=== PATIENT | female | born 1990 | race Caucasian/White ===

== ENCOUNTER → 2017-10-04 09:45 | Outpatient (CLI) | payer OTHER, SELFPAY ==
[2017-10-06 15:32] LABS: HPV Reflexed? NOT INDICATED
== END ==
PROVIDERS: Family Provider Family Medicine; PCP Family Medicine; Visit Provider Obstetrics & Gynecology
DX: Z12.4 Encounter for screening for malignant neoplasm of cervix (principal)
CPT/HCPCS: 88175; G0145

== ENCOUNTER → 2017-10-04 16:10 | Outpatient (CLI) | payer OTHER, SELFPAY | PROVIDERS: Family Provider Family Medicine; PCP Family Medicine; Visit Provider Obstetrics & Gynecology | DX: Z12.4 Encounter for screening for malignant neoplasm of cervix (principal) ==

== ENCOUNTER → 2018-07-22 14:47 | Outpatient (CLI) | payer OTHER, SELFPAY ==
[2016-08-30 05:10] VITALS: BMI 29.5
[2018-07-22 18:07] LABS: Chlamydia Trachomatis by PCR Negative (Negative); Neisserai gonorrhoeae by PCR Negative (Negative); Probe Check PASS; Sample Adequacy Control PASS; Specimen Processing Control PASS
--- OUTSIDE RECORDS SUMMARY | 2018-09-26 05:06 | XMS RPT_ITS ---
:1990 Author Organization OHIP Care Team Providers Name Role Phone Renetta Shannon Attending Unavailable Renetta Shannon Attending Unavailable Renetta Shannon Referring Unavailable Leighton Webb Primary Care Unavailable Renetta Shannon Attending Unavailable Renetta Shannon Referring Unavailable Leighton Webb Primary Care Unavailable PROBLEMS PROBLEMS DATE TYPE CONDITION / CODE ATTENDING STATUS SOURCE 07/25/2018 Unknown Z11.3 - Encounter Renetta Shannon Active [place] for screening for Community infections with a [facility] Repository sexual mode of transmission / Z11.3(ICD-10) 10/05/2017 Unknown Z12.4 - Encounter Renetta Shannon for screening for Community malignant neoplasm [facility] / Repository Z12.4(ICD-10) PROCEDURES PROCEDURES No Procedure Records FoundRESULTS RESULTS CT/NG [facility] BY PCR Collected: 07/22/2018 Status: F Source: [place] 9:45 AM [facility] REPOSITORY TYPE CODE TESTS RESULT OUT OF RANGE REFERENCE UNITS LAB L8200.2100 Negative Normal Chlam Negative Trac PCR LAB L8200.2200 Negative Normal NG by Negative PCR Performed By: #### L8200.1999 #### [facility] [address] [place], [address] PROGRESS Observed: 03/22/2018 Status: COMPLETED Source: [place] 2:51 PM [facility] REPOSITORY HNO ID: [id number] Author: Nazanin Hayden MA Service: (none) Author Type: (none) Type: Progress Notes Filed: 03/22/2018 3:12 PM Note Text: 27 year old female here for INACTIVATED INFLUENZA VACCINE. 2437-8973 Season Patient is identified by name and date of : Yes [] CONTRAINDICATIONS color enhanced section Age less than 6 months? No Allergy to eggs, chicken, chicken feathers, or chicken dander? No Allergy to thimerosal (a preservative) or formaldehyde, gelatin? No History of severe reaction to any vaccine component or a previous dose of influenza vaccination? No History of Guillain-[place] Syndrome within 6 weeks after a previous influenza vaccine? No Patient is not moderately or severely ill? No Current temperature greater or equal to 100.4F? No History of Bone Marrow Transplant prior 6 months or solid organ transplant in the past 3 months ? No History of fainting after a prior injection or medical procedure? No- ? If patient has fainted in the past, the CDC recommends sitting or lying down for 15 minutes after the vaccination. [] VERIFICATION color enhanced section Was the answer Yes for any of the above contraindications? No contraindications present. Acceptable to proceed with vaccine. Patient/guardian agrees the above answers are true to the best of their knowledge? Yes Flu vaccine information sheet given? Yes See immunization activity in [facility] for details of immunizations adminstered today. Nazanin Hayden MA Patient age: [age] year old For The 5377-6924 Flu Season 6-35 months old: Fluzone 0.25 ml - IM (Preservative Free) 3 years of age: Fluzone 0.5 ml - IM (Preservative Free) 3 years and older: Fluzone 0.5 ml- IM-(with Preservatives) 65+ years old: 2-49 years old Fluzone High-Dose 0.5 ml - IM (Preservative Free) FLUMIST- intranasal REMEMBER: If patient is less than 9 years of age and this is the first vaccine of Influenza to be received in any flu season, they should receive a second dose in one months time. CNNURSE Observed: 03/22/2018 Status: COMPLETED Source: [place] 12:00 PM [facility] REPOSITORY Nurse Visit (PEDSWS) STEPHANIE SAHU ([id number]) 1990 F Date Time Provider Department 03/22/18 12:00 PM [facility] During your visit today, we recorded the following information about you: Nazanin Hayden MA 03/22/2018 3:12 PM Signed 27 year old female here for INACTIVATED INFLUENZA VACCINE. 1187-9688 Season Patient is identified by name and date of : Yes [] CONTRAINDICATIONS color enhanced section Age less than 6 months? No Allergy to eggs, chicken, chicken feathers, or chicken dander? No Allergy to thimerosal (a preservative) or formaldehyde, gelatin? No History of severe reaction to any vaccine component or a previous dose of influenza vaccination? No History of Guillain-[place] Syndrome within 6 weeks after a previous influenza vaccine? No Patient is not moderately or severely ill? No Current temperature greater or equal to 100.4F? No History of Bone Marrow Transplant prior 6 months or solid organ transplant in the past 3 months ? No History of fainting after a prior injection or medical procedure? No- ? If patient has fainted in the past, the CDC recommends sitting or lying down for 15 minutes after the vaccination. [] VERIFICATION color enhanced section Was the answer Yes for any of the above contraindications? No contraindications present. Acceptable to proceed with vaccine. Patient/guardian agrees the above answers are true to the best of their knowledge? Yes Flu vaccine information sheet given? Yes See immunization activity in [facility] for details of immunizations adminstered today. Nazanin Hayden MA Patient age: [age] year old For The 0555-1627 Flu Season 6-35 months old: Fluzone 0.25 ml - IM (Preservative Free) 3 years of age: Fluzone 0.5 ml - IM (Preservative Free) 3 years and older: Fluzone 0.5 ml- IM-(with Preservatives) 65+ years old: 2-49 years old Fluzone High-Dose 0.5 ml - IM (Preservative Free) FLUMIST- intranasal REMEMBER: If patient is less than 9 years of age and this is the first vaccine of Influenza to be received in any flu season, they should receive a second dose in one months time. Referring Provider: SELF [200] Allergies As of Date: 03/22/2018 (No Known Allergies) Date Reviewed: 09/02/2016 Reviewed by: Aleja (Rn) ONEIL Shetty - Fully Assessed Reason for Visit: Imm/Inj [58] Cmt: Flu Vaccine Primary Visit Diagnosis:Need for vaccination [Z23] Order(s):INFLUENZA VAC QUADRIVALENT PRSRV FREE AGE 3 YRS + IM [[id number]] Order #: [id number] Prescriptions as of 03/22/2018 Sig: SPRINTEC (28) ORAL Take by mouth. BENADRYL ORAL Take by mouth. SINGULAIR ORAL Take by mouth. NINA ORAL Take by mouth. XYZAL ORAL Take by mouth. RANITIDINE HCL ORAL Take by mouth. ALBUTEROL SULFATE ER 4 MG TAB* Take 4 mg by mouth every 12 h* NORGESTIMATE 0.25 MG-ETHINYL * Take 1 tablet by mouth once d* NORGESTIMATE 0.25 MG-ETHINYL * Take 1 tablet by mouth once d* Problem List As Of Date: 03/22/2018 (None) Encounter Status:Closed by NAZANIN HAYDEN MA on 03/22/18 PAP I-G W/RFX HRHPV Collected: 10/04/2017 Status: F Source: [place] 9:45 AM [facility] REPOSITORY Order Comment: CYTOLOGY INFORMATION: - CLINICAL INFORMATION: OCP - DATE LMP/MENOPAUSE: LMP 09/26 - COLLECTION VIAL: Thin Prep Vial - [employer] OPERATOR SOURCE: CERVICAL/ENDOCERVICAL - COLLECTION TECHNIQUE: BRUSH/SPATULA Specimen Comment: [id number] Specimen Comment: No. of containers..01 ThinPrep Vial TYPE CODE TESTS RESULT OUT OF RANGE REFERENCE UNITS LAB L7400.0800 . Normal DIAGN Comment Result Comment: NEGATIVE FOR INTRAEPITHELIAL LESION AND MALIGNANCY. LAB L7400.0900 . Normal ADEQ Comment Result Comment: Satisfactory for evaluation. Endocervical and/or squamous metaplastic cells (endocervical component) are present. LAB L7400.1400 . Normal PERFORM Comment Result Comment: Kira Edgar, It Service Manager (ASCP) LAB L7400.2575 . Normal TEST METHOD Comment Result Comment: This liquid based ThinPrep(R) pap test was screened with the use of an image guided system. LAB L7400.2600 . Normal . COMM LAB L7400.2700 . Normal PAPSMR Comment Result Comment: The Pap smear is a screening test designed to aid in the detection of premalignant and malignant conditions of the uterine cervix. It is not a diagnostic procedure and should not be used as the sole means of detecting cervical cancer. Both false-positive and false-negative reports do occur. LAB L7400.2800 . Normal HPV RFLX Comment Result Comment: The HPV DNA reflex criteria were not met with this specimen result therefore, no HPV testing was performed. Performed at: [address] [place] [id number] Field Crop Grower: Laquita Arroyo MD, Phone: [phone] Performed By: #### L7400.0350 #### [facility] (refer to report for specific site) refer to report for address and phone number ALLERGIES ALLERGIES DATE TYPE / CODE NAME / CODE REACTION SEVERITY SOURCE 08/30/2016 Drug No Known Unknown [facility] Allergy/416 Allergies/Y25769 Hospital 130950(SNOM 0388(RXNORM) Repository ED CT) Drug NO KNOWN [facility] Class/17693 ALLERGIES Main [place] 1003(SNOMED Repository CT) ENCOUNTERS ENCOUNTERS ADMIT/DISCHARGE ACCOUNT ADMITTING ENCOUNTER LOCATION SOURCE NUMBER CLASS 07/22/2018 [id number] [facility] ing:[facility]SPEC Repository 03/22/2018/03/23/20 [id number] [address]ulatory [address] Repository 03/08/[id number] [facility] Repository 10/04/2017 [id number] [facility] ing:[facility]SPEC Repository 10/04/2017 [id number] [facility] ing:[facility]SPEC Repository PAYERS PAYERS ENCOUNTER GUARANTOR PAYER SUBSCRIBER SOURCE 07/22/2018 STEPHANIE [id number] Primary MANUEL L [place] Insurance:AULTCAREPol MEENANDOB: [facility] Number: [id number] Hospital [address]Lzl: [phone] [id number] Repository [phone] () Date:[id number] [address] [place] [id number]: 07/22/2018 Secondary NOT GIVENUNK [place] Insurance:SELF PAY [facility] Number: Effective Repository Date:2018-07-22 10/04/2017 Stephanie [id number] Primary Manuel L [place] Insurance:AULTCAREPol MeenanDOB: [facility]: [id number] [address]Kvq: [id number] Repository Date:[id number] [address] ) [address] [place] [id number]: 10/04/2017 Secondary NOT GIVENUNK [place] Insurance:SELF PAY [facility] Number: Effective Repository Date:2017-10-04 10/04/2017 Stephanie [id number] Primary Manuel L [place] Insurance:AULTCAREPol MeenanDOB: [facility] Gwen joanaernesto Number: [id number] [facility] [address]Ugn: [id number] Repository Date:[id number] [address], [place] [address]JS: 10/04/2017 Secondary NOT GIVENUNK [place] Insurance:SELF PAY [facility] Number: Effective Repository Date:2017-10-04
== END ==
PROVIDERS: Visit Provider Obstetrics & Gynecology
DX: Z11.3 Encounter for screening for infections with a predominantly sexual mode of transmission (principal)
CPT/HCPCS: 87491; 87591

== ENCOUNTER → 2018-08-01 16:17 | Outpatient (CLI) | payer OTHER, SELFPAY ==
[2016-08-30 05:10] VITALS: BMI 29.5
[2018-08-01 17:35] LABS: Absolute Lymphocyte Count 2.64 X10^3/ul (0.83-4.51); Absolute Neutrophil Count 5.4 X10^3/uL (2.0-7.7); Basophil# 0.02 X10^3/uL; Basophil% 0.2 % (0-1); Eosinophil# 0.07 X10^3/uL; Eosinophils% 0.8 % (0-5); Hematocrit 38.6 % (37-47); Hemoglobin 12.9 g/dl (12.0-15.0); Lymphocyte # 2.64 X10^3/ul (4.0); Mean Corp Hgb Conc 33.4 g/gl (32-36); Mean Corpuscular Hgb 30.6 pg (27.0-32.0); Mean Corpuscular Volume 91.7 fL (81-99); Mean Platelet Vol. 10.2 fl (6.2-12.0); Monocyte# 0.71 X10^3/uL; Monocyte% 8.1 % (0-10); Neutrophil # 5.35 X10^3/uL (2.7-7.7); Neutrophil % 60.7 % (47-70); Platelet Count 261 K/mm3 (150-450); RBC Distribution Width CV 11.9 % (11.6-14.6); RBC Distribution Width SD 38.9 fl (35.1-43.9); Red Blood Count 4.21 M/mm3 (4.2-5.4); White Blood Count 8.8 K/mm3 (4.4-11.0)
[2018-08-01 17:50] LABS: Thyroid Stim Hormone (TSH) 0.89 uIU/mL (0.358-3.74)
[2018-08-01 18:04] LABS: POSITIVE COUNT NO; POSITIVE DIFFERENTIAL NO; POSITIVE MORPHOLOGY NO
[2018-08-01 18:32] LABS: Color, Urine Yellow (Yellow); Glucose, Dipstick Normal (Normal); HIV - WCH Non-Reactive (Nonreactive); Ketone-Dipstick Negative (Negative); Leukocyte Esterase-Dipstick Negative /ul (Negative); Nitrite-Dipstick Negative (Negative); Occult Blood-Urine Negative /ul (Negative); Protein-Dipstick Negative (Negative); Rubella IgG 102.7 IU/mL; Urine Bilirubin Dipstick Negative (Negative); Urine Clarity Clear (Clear); Urine Urobilinogen Normal (Normal)
[2018-08-03 11:56] LABS: HEPATITIS B SURFACE AG Negative (Negative); Hep C Antibodies <0.1 s/co ratio (0.0-0.9)
[2018-08-05 07:39] LABS: Prenatal RPR NONREACTIVE (NONREACTIVE)
== END ==
PROVIDERS: Visit Provider Obstetrics & Gynecology
DX: Z34.81 Encounter for supervision of other normal pregnancy, first trimester (principal)
CPT/HCPCS: 36415; 81002; 84443; 85025; 86703; 86762; 86803; 87340

== ENCOUNTER → 2018-12-19 10:14 | Outpatient (CLI) | payer MEDICAID, SELFPAY ==
[2018-12-19 10:44] LABS: Hematocrit 35.7 % (37-47); Hemoglobin 11.7 g/dl (12.0-15.0); Mean Corp Hgb Conc 32.8 g/gl (32-36); Mean Corpuscular Hgb 30.6 pg (27.0-32.0); Mean Corpuscular Volume 93.5 fL (81-99); Mean Platelet Vol. 10.7 fl (6.2-12.0); Platelet Count 147 K/mm3 (150-450); RBC Distribution Width SD 40.1 fl (35.1-43.9); Red Blood Count 3.82 M/mm3 (4.2-5.4); Scan Indicated on CBC? Y/N NO; White Blood Count 7.5 K/mm3 (4.4-11.0)
[2018-12-19 11:01] LABS: Glucose Challenge Gest 1H 50g 94 mg/dL (70-140)
== END ==
PROVIDERS: Visit Provider Obstetrics & Gynecology
DX: Z34.83 Encounter for supervision of other normal pregnancy, third trimester (principal)
CPT/HCPCS: 36415; 82950; 85027

== ENCOUNTER → 2019-02-13 13:28 | Outpatient (CLI) | payer MEDICAID, SELFPAY ==
[2016-08-30 05:10] VITALS: BMI 29.5
== END ==
PROVIDERS: Referring Provider Obstetrics & Gynecology; Visit Provider Obstetrics & Gynecology
DX: Z36.85 Encounter for antenatal screening for Streptococcus B (principal)
CPT/HCPCS: 87081

== ENCOUNTER 2019-02-22 09:13 | Inpatient (IN) | payer MEDICAID, SELFPAY ==
[2019-02-22 08:54] VITALS: BMI 29.1
[2019-02-22 09:11] LABS: ROM Internal Control Test YES-OK TO RESULT pt. (Internal QC)
[2019-02-22 09:12] LABS: ROM Patient Test POSITIVE (Negative)
[2019-02-22] MEDS: Lactated Ringers 1,000 ML 50 ML IV (10:26)
[2019-02-22 10:43] LABS: Absolute Lymphocyte Count 1.83 X10^3/uL (0.83-4.51); Basophil# 0.02 X10^3/uL; Basophil% 0.3 % (0-1); Differential Indicated SCAN CRITERIA MET; Eosinophil# 0.01 X10^3/uL; Eosinophils% 0.1 % (0-5); Hematocrit 36.9 % (37-47); Hemoglobin 12.3 g/dL (12.0-15.0); Lymphocyte # 1.83 X10^3/ul (4.0); Lymphocyte % 23.6 % (19-41); Mean Corp Hgb Conc 33.3 g/dL (32-36); Mean Corpuscular Hgb 30.7 pg (27.0-32.0); Mean Platelet Vol. 13.2 fl (6.2-12.0); Monocyte# 0.83 X10^3/uL; Monocyte% 10.7 % (0-10); NRBC Flagged by Analyzer 0 % (0-5); Neutrophil # 5.01 X10^3/uL (2.7-7.7); Neutrophil % 64.4 % (47-70); POSITIVE MORPHOLOGY YES; Platelet Count 102 K/mm3 (150-450); RBC Distribution Width CV 11.8 % (11.6-14.6); RBC Distribution Width SD 39.8 fl (35.1-43.9); Red Blood Count 4.01 M/mm3 (4.2-5.4); White Blood Count 7.8 K/mm3 (4.4-11.0)
[2019-02-22] MEDS: Oxytocin 30 units/NS 500 ml 30 UNITS/500 ML IV.SOLN IV (11:12)
[2019-02-22] MEDS: Lactated Ringers 500 ML 999 ML IV (13:05)
[2019-02-22] MEDS: Lactated Ringers 1,000 ML 200 ML IV (14:26)
[2019-02-22] MEDS: fentaNYL-bupivacaine (epidural) 100 ML BAG EPIDURAL (15:22)
--- NOTE | 2019-02-22 17:05 | PCM.HP.BLA ---
History and Physical Date of Admission: 02/22/19 History of this : 28 yo female Ab0 with EDC 03/11/2019 by Ultrasound, presents to Labor and Delivery. care unremarkable. Presents in active labor with gross ROM at home. Pertinent Past Medical History: non-smoker Allergies: NKDA Medications: During - Ortho-Cyclen (28) 0.25 mg-35 mcg tablet; + DHA 28 mg iron- 975 mcg-200 mg combo pack Review of Systems: Non-contributory PHYSICAL EXAMINATION General Appearence: 28 yo female in no acute distress Vital Signs: AF, VSS Heart: RRR without rubs or gallops Lungs: CTA x 2 Breasts: deferred Abdomen: gravid Pelvis: Cervix: 2/50--ROM positive Presentation: cephalic Station: -2 Fetus: Size: AGA Movement: present Heart: present Impression /Plan: 37+ week Intrauterine in early active labor. Preparations in progress for delivery.
--- NOTE | 2019-02-22 17:11 | OP.PCM_ITS ---
Vaginal Delivery Maternal Presentation: Active Labor, Spontaneous Rupture of Membranes Amniotic Membrane Rupture Type: Spontaneous at home Amniotic Fluid Description: Clear Final LISA: 03/11/19 Final LISA Source: US <20 weeks Gestational age: 37 Weeks and 4 Days Date of Procedure: 02/22/19 Pre-Operative Diagnosis: IUP Post-Operative Diagnosis: IUP Surgery/ Procedure Performed: Spontaneous Vaginal Delivery Type of Anesthesia: Epidural Description of Procedure: Spontaneous vaginal delivery of a viable female with Apgars of 8/9 from an occiput anterior presentation with clear amniotic fluid and normal three- vessel placenta. No episiotomy. Second-degree midline laceration repaired with 3-0 Rapide suture under epidural. Sponges okay. Delivery physician: José Mariee MD. Presentation: Vertex Placental Delivery Description: Spontaneous Placenta Disposition: [facility] Cord Vessel Description: 3 Vessels Cord Entanglement: None Estimated Blood Loss: 250 cc Infant A gender: Female (1 minute): 8 (5 minute): 9 Episiotomy Description: None Laceration: Midline, 2nd degree Medications given after delivery: IV Pitocin Complications: None
--- NOTE | 2019-02-22 17:15 | DCINST_ITS ---
Discharge Diet: No Restrictions Discharge Activity: May Shower, May Take a Tub Bath May resume sexual activity in: 4-6 weeks Additional Activity Instructions:: Nothing in the vagina for 4-6 weeks. You may return to work/school in 6 weeks. Call your doctor if you observe: Fever of 101 or Higher, Inability to urinate, Inability to have a bowel movement, Using more than one pad per hour Additional Instructions: If you experience any of the following, contact your healthcare provider. * Bleeding that soaks a pad every hour for 2 hours * Unrelieved incision or abdominal pain * Swelling, redness, discharge or bleeding from your incision or episiotomy site * Your incision begins to separate * Problems urinating (including inability to urinate or burning while urinating). * Visual changes * Severe headache * Flu-like symptoms * Pain or redness in one of both of your breasts * Pain, warmth, tenderness or swelling in your legs, especially the calf area * Frequent nausea and vomiting * Symptoms of depression or anxiety If you experience any of the following, call 911 or go to the nearest Emergency Room. * Chest pain * Problems breathing * Seizure activity * Partial or complete paralysis of a body part, slurred speech, weakness or drooping of the face, or a sudden inability to walk or hold your balance Allergies/Adverse Reactions: Allergies No Known Allergies Allergy (Verified 02/22/19 09:04) Medications to take at Discharge Vits [Prenatabs FA ] 1 tablet PO DAILY 10/11/14 Please Follow Up With: José Mariee MD - [phone] When: Call to make an appointment with your doctor in 6 weeks. Primary Care Physician: Care Physician,No Primary [Primary Care Provider] - Test Results: Test results from this visit will be discussed in further detail at your follow- up appointment, if applicable.
--- NOTE | 2019-02-22 17:15 | PCM.DCVAG ---
Discharge Diet: No Restrictions Discharge Activity: May Shower, May Take a Tub Bath May resume sexual activity in: 4-6 weeks Additional Activity Instructions:: Nothing in the vagina for 4-6 weeks. You may return to work/school in 6 weeks. Call your doctor if you observe: Fever of 101 or Higher, Inability to urinate, Inability to have a bowel movement, Using more than one pad per hour Additional Instructions: If you experience any of the following, contact your healthcare provider. Bleeding that soaks a pad every hour for 2 hours Unrelieved incision or abdominal pain Swelling, redness, discharge or bleeding from your incision or episiotomy site Your incision begins to separate Problems urinating (including inability to urinate or burning while urinating). Visual changes Severe headache Flu-like symptoms Pain or redness in one of both of your breasts Pain, warmth, tenderness or swelling in your legs, especially the calf area Frequent nausea and vomiting Symptoms of depression or anxiety If you experience any of the following, call 911 or go to the nearest Emergency Room. Chest pain Problems breathing Seizure activity Partial or complete paralysis of a body part, slurred speech, weakness or drooping of the face, or a sudden inability to walk or hold your balance Allergies/Adverse Reactions: Allergies No Known Allergies Allergy (Verified 02/22/19 09:04) Medications to take at Discharge Vits [Prenatabs FA ] 1 tablet PO DAILY 10/11/14 Please Follow Up With: José Mariee MD - [phone] When: Call to make an appointment with your doctor in 6 weeks. Primary Care Physician: Care Physician,No Primary [Primary Care Provider] - Test Results: Test results from this visit will be discussed in further detail at your follow-up appointment, if applicable.
[2019-02-22] MEDS: Oxytocin 30 units/NS 500 ml 30 UNITS/500 ML IV.SOLN 334 UNITS IV (17:24)
[2019-02-22 19:41] VITALS: BP 131/69; PULSE 72; RESP 18; TEMP 36.8
[2019-02-22 23:38] VITALS: BP 124/67; PULSE 65; RESP 18; TEMP 36.5
[2019-02-23] MEDS: Ibuprofen 600 MG Tablet PO ×3 (03:16→22:30)
[2019-02-23 04:20] VITALS: BP 110/58; PULSE 56; RESP 16; TEMP 36.2
[2019-02-23 08:10] VITALS: BP 136/72; PULSE 62; RESP 16; TEMP 36.4
--- NOTE | 2019-02-23 08:10 | NURSING ---
pt complains of pain each time latches on. Recommendation given to try warm or cold compress prior to latching infant onto breast. supplies for compress provided
[2019-02-23] MEDS: Acetaminophen 500 MG Tablet 1000 MG PO ×2 (08:18→16:56)
--- NOTE | 2019-02-23 09:36 | PCM.PN.OB ---
Subjective: Patient without complaints. Minimal vaginal bleeding reported. Considering going home later today. - Physical Exam Vital Signs Temp Pulse Resp BP 97.2 F L 56 L 16 110/58 L 02/23/19 04:20 02/23/19 04:20 02/23/19 04:20 02/23/19 04:20 Oxygen Delivery Method Room Air Weight: 175 lb Body Mass Index (BMI) 29.1 Intake and Output for Last 24 Hours 02/21/19 02/22/19 02/23/19 23:59 23:59 23:59 Intake Total 1634.37 / 1634.37 Output Total 1600 / 1600 Balance 34.37 / 34.37 Laboratory Tests Past 24 Hrs 02/22/19 02/22/19 10:26 10:26 WBC 7.8 RBC 4.01 L Hgb 12.3 Hct 36.9 L MCV 92.0 MCH 30.7 MCHC 33.3 RDW Std Deviation 39.8 RDW Coeff of Ronnie 11.8 Plt Count 102 L MPV 13.2 H Immature Gran % (Auto) 0.900 Neut % (Auto) 64.4 Lymph % (Auto) 23.6 [place] % (Auto) 10.7 H Eos % (Auto) 0.1 Baso % (Auto) 0.3 Absolute Neuts (auto) 5.0 Absolute Lymphs (auto) 1.83 Nucleated RBC % 0 Blood Type O POSITIVE Antibody Screen NEGATIVE Medical Necessity - Tobacco Use Smoking Status: Never smoker Assessment/Plan Doing well day #1. Home-going instructions given.
[2019-02-23 12:30] VITALS: BP 134/62; PULSE 52; RESP 16; TEMP 36.7
[2019-02-23] MEDS: Senna/Docusate Sodium 1 Tablet PO (12:43)
[2019-02-23 16:55] VITALS: BP 128/64; PULSE 56; RESP 18; TEMP 36.6
[2019-02-23 19:51] VITALS: BP 116/61; PULSE 73; RESP 18; TEMP 36.5; O2SAT 97
[2019-02-24 02:45] VITALS: BP 119/68; PULSE 69; RESP 16; TEMP 36.6; O2SAT 95
--- NOTE | 2019-02-24 03:00 | NURSING ---
report given to Princess RIGGS
[2019-02-24] MEDS: Ibuprofen 600 MG Tablet PO (07:45)
[2019-02-24 07:57] VITALS: RESP 16
[2019-02-24] MEDS: Senna/Docusate Sodium 1 Tablet PO (08:26)
--- NOTE | 2019-02-24 08:46 | PCM.PN.OB ---
Subjective: Patient without complaints. Breast-feeding going well. Ready to go home today. - Physical Exam Vital Signs Temp Pulse Resp BP Pulse Ox 97.8 F 69 16 119/68 95 02/24/19 02:45 02/24/19 02:45 02/24/19 07:57 02/24/19 02:45 02/24/19 02:45 Oxygen Delivery Method Room Air Weight: 175 lb Body Mass Index (BMI) 29.1 Intake and Output for Last 24 Hours 02/22/19 02/23/19 02/24/19 23:59 23:59 23:59 Intake Total 1634.37 / 1634.37 Output Total 1600 / 1600 Balance 34.37 / 34.37 Medical Necessity - Tobacco Use Smoking Status: Never smoker Assessment/Plan Doing well day #2 status post routine spontaneous vaginal delivery. Will release to home with routine instructions.
[2019-02-24 08:48] VITALS: BP 131/67; PULSE 51; RESP 18; TEMP 36.6; O2SAT 98
== END 2019-02-24 10:50 | disposition home or self-care (01) | DRG 807 ==
LOC: WPOUT 09:14
PROVIDERS: Admitting Provider Obstetrics & Gynecology; Referring Provider Obstetrics & Gynecology; Visit Provider Obstetrics & Gynecology
DX: O42.02 Full-term premature rupture of membranes, onset of labor within 24 hours of rupture (principal); Z37.0 Single live birth; O70.1 Second degree perineal laceration during delivery; Z3A.37 37 weeks gestation of pregnancy
CPT/HCPCS: 59025; 59050; 84112; 85025; 86850; 86900; 86901; 99218; J7120; G0378

== ENCOUNTER → 2019-04-04 13:39 | Outpatient (CLI) | payer MEDICAID, SELFPAY | PROVIDERS: Visit Provider Obstetrics & Gynecology | DX: Z12.4 Encounter for screening for malignant neoplasm of cervix (principal) ==

== ENCOUNTER → 2020-02-23 | Outpatient (CLI) | payer BC, SELFPAY ==
[2020-02-27 03:06] LABS: Chlamydia By Nucleic Acid AMP Negative (Negative)
[2020-02-27 10:45] LABS: Gonococcus By Nucleic Acid AMP Negative (Negative)
== END | disposition home or self-care (01) ==
LOC: LABSPEC 15:48
PROVIDERS: Visit Provider Student in an Organized Health Care Education/Training Program
DX: Z32.01 Encounter for pregnancy test, result positive (principal); Z11.3 Encounter for screening for infections with a predominantly sexual mode of transmission
CPT/HCPCS: 87491; 87591

== ENCOUNTER → 2020-03-04 13:52 | Outpatient (CLI) | payer BC, SELFPAY ==
[2020-03-04 14:15] LABS: Absolute Lymphocyte Count 1.64 X10^3/uL (0.83-4.51); Absolute Neutrophil Count 5.9 X10^3/uL (2.0-7.7); Basophil# 0.02 X10^3/uL; Basophil% 0.2 % (0-1); Color, Urine Yellow (Yellow); Eosinophil# 0.05 X10^3/uL; Eosinophils% 0.6 % (0-5); Glucose, Dipstick Normal (Normal); Hematocrit 37.4 % (37-47); Ketone-Dipstick Negative (Negative); Leukocyte Esterase-Dipstick Negative /ul (Negative); Lymphocyte # 1.64 X10^3/ul (4.0); Lymphocyte % 19.8 % (19-41); Mean Corp Hgb Conc 32.1 g/dL (32-36); Mean Corpuscular Hgb 29.9 pg (27.0-32.0); Mean Platelet Vol. 9.4 fl (6.2-12.0); Monocyte# 0.64 X10^3/uL; Monocyte% 7.7 % (0-10); NRBC Flagged by Analyzer 0 % (0-5); Neutrophil % 71.5 % (47-70); Nitrite-Dipstick Negative (Negative); Occult Blood-Urine Negative /ul (Negative); Platelet Count 251 K/mm3 (150-450); Protein-Dipstick Negative (Negative); RBC Distribution Width CV 11.4 % (11.6-14.6); RBC Distribution Width SD 38.7 fl (35.1-43.9); Red Blood Count 4.02 M/mm3 (4.2-5.4); Specific Gravity, Urine 1.025 (1.002-1.030); Urine Bilirubin Dipstick Negative (Negative); Urine Clarity Sl. Cloudy (Clear); Urine Urobilinogen Normal (Normal); White Blood Count 8.3 K/mm3 (4.4-11.0)
[2020-03-04 14:43] LABS: Amphetamine Urine VISTA NEGATIVE (<1000 ng/mL); Barbiturate Urine VISTA NEGATIVE (< 200 ng/mL); Benzodiazepine Urine VISTA NEGATIVE (< 200 ng/mL); Cocaine Urine VISTA NEGATIVE (< 300 ng/mL); Ecstacy Urine VISTA NEGATIVE (< 500 ng/mL); Methadone Urine VISTA NEGATIVE (< 300 ng/mL); PCP Urine VISTA NEGATIVE (< 25 ng/mL); THC Urine VISTA NEGATIVE (< 50 ng/mL); Vista UDS pH Range 6
[2020-03-04 15:35] LABS: HIV - WCH Non-Reactive (Nonreactive); Hepatitis B Surface Antigen Non-Reactive (Nonreactive); Hepatitis C Antibody Non-Reactive (Nonreactive)
[2020-03-07 06:28] LABS: Prenatal RPR NONREACTIVE (NONREACTIVE)
== END ==
PROVIDERS: Visit Provider Student in an Organized Health Care Education/Training Program
DX: Z34.81 Encounter for supervision of other normal pregnancy, first trimester (principal)
CPT/HCPCS: 36415; 80307; 81002; 85025; 86703; 86762; 86803; 87340

== ENCOUNTER → 2020-07-11 09:15 | Outpatient (CLI) | payer BC, SELFPAY ==
[2020-07-11 12:05] LABS: Glucose Challenge Gest 1H 50g 63 mg/dL (70-140)
[2020-07-11 12:18] LABS: Hematocrit 35.2 % (37-47); Hemoglobin 11.2 g/dL (12.0-15.0); Mean Corp Hgb Conc 31.8 g/dL (32-36); Mean Corpuscular Hgb 30.9 pg (27.0-32.0); Mean Platelet Vol. 11.6 fl (6.2-12.0); Platelet Count 210 K/mm3 (150-450); RBC Distribution Width CV 12.1 % (11.6-14.6); RBC Distribution Width SD 42.8 fl (35.1-43.9); Red Blood Count 3.63 M/mm3 (4.2-5.4); White Blood Count 8.1 K/mm3 (4.4-11.0)
== END ==
PROVIDERS: Visit Provider Student in an Organized Health Care Education/Training Program
DX: Z34.82 Encounter for supervision of other normal pregnancy, second trimester (principal)
CPT/HCPCS: 36415; 82950; 85027

== ENCOUNTER → 2020-09-12 10:37 | Outpatient (CLI) | payer BC, SELFPAY | PROVIDERS: Visit Provider Student in an Organized Health Care Education/Training Program | DX: Z36.85 Encounter for antenatal screening for Streptococcus B (principal); Z34.83 Encounter for supervision of other normal pregnancy, third trimester | CPT/HCPCS: 87081 ==

== ENCOUNTER 2020-10-14 01:05 | Inpatient (IN) | payer BC, SELFPAY ==
[2020-10-14] VITALS (55 sets, daily range): BP systolic 95–172; BP diastolic 43–88; PULSE 48–94; RESP 16; TEMP 36.1–37.3; O2SAT 83–99; BMI 29.9
[2020-10-14] MEDS: Lactated Ringers 500 ML 999 ML IV ×2 (01:20→03:10)
[2020-10-14 01:32] LABS: Absolute Lymphocyte Count 2.04 X10^3/uL (0.83-4.51); Absolute Neutrophil Count 4.9 X10^3/uL (2.0-7.7); Basophil# 0.01 X10^3/uL; Basophil% 0.1 % (0-1); Eosinophil# 0.05 X10^3/uL; Eosinophils% 0.6 % (0-5); Hemoglobin 11.8 g/dL (12.0-15.0); Lymphocyte # 2.04 X10^3/ul (4.0); Lymphocyte % 25.9 % (19-41); Mean Corp Hgb Conc 32.8 g/dL (32-36); Mean Corpuscular Hgb 30.9 pg (27.0-32.0); Mean Corpuscular Volume 94.2 fL (81-99); Mean Platelet Vol. 12.5 fl (6.2-12.0); Monocyte# 0.86 X10^3/uL; Monocyte% 10.9 % (0-10); NRBC Flagged by Analyzer 0 % (0-5); Neutrophil # 4.88 X10^3/uL (2.7-7.7); Neutrophil % 61.9 % (47-70); Platelet Count 125 K/mm3 (150-450); RBC Distribution Width CV 11.9 % (11.6-14.6); RBC Distribution Width SD 41.4 fl (35.1-43.9); Red Blood Count 3.82 M/mm3 (4.2-5.4); White Blood Count 7.9 K/mm3 (4.4-11.0)
[2020-10-14] MEDS: Lactated Ringers 1,000 ML 200 ML IV ×2 (01:50→04:14)
[2020-10-14] MEDS: fentaNYL-bupivacaine (epidural) 100 ML BAG EPIDURAL (02:16)
[2020-10-14] MEDS: Oxytocin 30 units/NS 500 ml 30 UNITS/500 ML IV.SOLN 334 UNITS IV (05:16)
--- NOTE | 2020-10-14 05:27 | HP.PCM_ITS ---
History and Physical Date of Admission: 10/14/20 ACOG ANTEPARTUM RECORD - HISTORY AND PHYSICAL (10/14/2020) Name: ARLETTE SAHU History of this : This is a 30 year old [id number] presents at 40 wks + 6 days gestation in active labor with rupture of membranes. OB Physician: Debbi Hannah [place]'s Physician: GURINDER ...................................................................... : 1990 Age: 30 Address: [address] [place] [address] Phone: [phone]) [phone] Insurance Carrier: [employer] [facility] [id number] Emergency Contact: MANUEL SAHU/ [phone] ...................................................................... Final LISA: 10/08/20 By Ultrasound: 8 weeks 6 days PARITY: (G-Total Pregnancies P-Fullterm,Premature,Induced AB,Spont AB, Ectopics, Multiple,Living) LISA CONFIRMATION: By LMP: 01/02/20 Final LISA: 10/08/20 OB PROBLEM LIST: AFP and CF testing declined EPDS on 03/04/2020 = 0 Epidural and breast feeding planned ALLERGIES: NKDA MEDICATIONS: + DHA 28 mg iron- 975 mcg-200 mg combo pack daily SOCIAL HISTORY: Smoking - Never Alcohol Use - RARELY not while Diet - balanced Diet Lifestyle - low stress lifestyle Exercise - very active Employer - Stays at home Job Description - Illicit Drug Use - denies use of street drugs Sexual Activity - Residence - owns a home Place of - [place], [place] Spouse-Sig Other Name - Manuel Spouse-Sig Other Occupation - Marketing Spouse-Sig Other Phone No - [phone] Children Name(s) - Leidy Beck Paige PRIOR DELIVERY HISTORY DEL DATE GEST LAB WT LB WT OZ TYPE ANES LABOR TX 09 Apr 15 38 13 7 7 Vag Epidural No 21 Aug 19 37 10 7 2 Vag Epidural No 26 Feb 17 39 9 8 8 Vag Epidural No ANTEPARTUM FLOW CHART VISIT GE RTC FU F F AR U U DATE WK MD WKS HT PN HR M SS BP ED WT AR GL D EF ST __ ____ ___ __ __ ___ __ __ __ ___ __ __ __ ___ __ 05 Apr 39 CM 6 39 V + + 134/74 sl 181 - - 29 Mar 38 CM 1 38 V + + 102/64 sl 180 - - 3 50 -3 22 Mar 37 CM 1 38 V + + 122/70 sl 180 - - 11 Mar 36 CM 1 36 V + + 122/70 0 175 tr ne 22 Feb 33 CM 2 33 V + + 118/62 sl 175 - - 08 Feb 31 CM 2 31 V + + 110/58 0 173 ne ne 25 Sushil 29 CM 2 29 + + 106/64 0 169 07 Jul 31 CM 2 27 + + 118/68 0 166 - - Jun 26 CM 4 23 + O 116/54 0 162 ne ne May 24 JM 4 20 - on O 100/62 0 157 - - Apr 19 CM 3 + O 102/60 0 152 tr - 28 Mar 12 CM 4 U+ 102/56 0 147 31 Feb 09 CH 4 on US 110/70 0 145 tr - ANTEPARTUM NOTE(S): Oct 07 2020: Sep 30 2020: feeling well. Cervix check today. AM Sep 23 2020: Sep 12 2020: GBS, LARC today Aug 26 2020: Aug 12 2020: Jul 29 2020: Jul 11 2020: Jun 17 2020: May 23 2020: doing well, comp u/s today Apr 29 2020: feeling well. Apr 01 2020: Mar 04 2020: feeling well. NOB papers and labs done today. AM COMPREHENSIVE ANTEPARTUM NOTE(S): Oct 07 2020: 39/6w visit. 3 cm dilated, membranes swept. Plan for induction Wednesday AM. F/u 6w PP. CM Oct 07 2020: Arlette is doing well. Good FM. Slight edema hands and feet. She would like to have her membranes stripped today and discuss IOL. She is pre- registered. Pitocin Induction scheduled for 7 AM 10/09/20 w/Amanda. Consent signed. Induction literature provided. Induction forms all faxed to OB. kbm Sep 30 2020: 38/6w visit. Feeling well Will plan post dates IOL at next visit. F/u 1w. CM Sep 23 2020: GBS negative. Good FM. Voicing no concerns. Sent to [facility] to pre register. Sep 23 2020: 37/6w visit. GBS neg. F/u 1w CM Sep 17 2020: H taken to OB. tkg Sep 12 2020: Arlette is here for PNV. States she is feeling well. LARC signed and declined, GBS today. Having good FM. No edema present. Urine tr/neg. No concerns today. LSS Sep 12 2020: 36/2w visit. GBS done. CE FT. F/u 1w. CM Aug 26 2020: Arlette is doing well. Good FM. Voices no concerns today. Aug 26 2020: 33/6w visit. F/u 2w. CM Aug 12 2020: Arlette is here for PNV. States she is feeling really well. Good FM. Taking vitamin as well as supplementing with Zinc. No edema noted. Urine dipped neg and neg. LSS Aug 12 2020: 31/6w visit. F/u 2w. CM Jul 29 2020: TDap done after last visit. Good FM. Glucose, CBC WNL. kbm Jul 29 2020: 29/6w visit. Feeling well without complaints. DIscussed kick counts. F/u 2w. CM Jul 11 2020: Reporting good FM. 1 hr Glucose, CBC drawn this morning. Jul 11 2020: 27/2w visit. GTT today. Discussed TDap, will be getting today. F/u 2w. CM Jun 17 2020: Arlette is here for PNV. Drank her glucola prior to visit. Informed her that unfortunately it is too early to draw GCT. Another bottle of glucola given and instructed to have done for next visit and prior to reaching the 28 week rebeca. Asking about dTap. Wishes to have that. Instucted any pharmacy or the health dept and between her 27-36 week rebeca. Not feeling FM at this time. No edema noted. Jun 17 2020: 23/6w visit. Glucola drank - but cannot draw due to <24w. Given again for next visit or any time before for lab visit. Pt had covid dx day after [employer] - mild symptoms. F/u 4w. CM May 23 2020: Arlette is here for visit. She is doing well, no complaints. Had Influenza vaccine. Discussed Tdap in third trimester. She is given glucola with instructions. Not finding out gender this time. LMT May 23 2020: 20wk, Anatomy u/s wnl. 1hr GTT at next visit. JM Apr 29 2020: 16/6w visit. Feeling well. No concerns. F/u 3-4w anatomy US. Apr 01 2020: Arlette is here for PNV. Feeling well. Nausea minimal. No particular issues today. Plans not to find out gender. DRC. Apr 01 2020: 12/6w visit. FHR by US. Feeling well. REVIEW OF SYSTEMS: GENERAL - Denies fever, or chills SKIN - Denies rash, new skin lesions, or change in moles EYES - Denies blurred vision, or change in visual acuity EARS - Denies ear pain, or difficulty hearing NOSE - Denies nasal congestion, discharge, or bleeding MOUTH - Denies sore throat, or difficulty swallowing NECK - Denies pain or swelling RESPIRATORY - Denies shortness of breath, cough, wheezing CARDIOVASCULAR - Denies palpitations, chest pain, orthopnea, PND, peripheral edema, syncope or claudication GASTROINTESTINAL - Denies nausea, vomiting, diarrhea, constipation, Denies abdominal pain, melena and or bright red blood GENITOURINARY - Denies dysuria, frequency of urination, urgency, or hesitancy MUSCULOSKELETAL - Denies joint or muscle pain, or back pain NEUROLOGICAL - Denies localized numbness, weakness, or tingling PSYCHIATRIC - Denies depression, anxiety, substance abuse or suicide attempts ENDOCRINE - Denies heat or cold intolerance, weight loss or gain, increasing thirst HEMATO-IMMUNOLOGIC - Denies easy bruising, bleeding, oral ulcerations or recurrent infections GENETICS SCREENING: Age 35+ years: No Thalassemia: No Neural Tube Defect: No Down Syndrome: No CORNELIA-SACHS: No Sickle Cell Disease: No Hemophilia: No Musc. Dystrophy: No Cystic Fibrosis: No-declines screening [place] Chorea: No Mental Retardation: No Fragile X: No Other genetic: No Other defects: No SABs/still births: No Drugs since LMP: No INFECTION HISTORY: High risk AIDS: No High risk Hepatitis: No Exposed to TB: No Exposed to Herpes: No Rash/viral illness since LMP: No History of STD: No MENSTRUAL HISTORY: *Menses Amount/Duration: 7 daysMenses Regularity: RegularFrequency: monthlyMenarche (Age Onset): 12* PAST SUMMARY: PARITY: 1. Total Pregnancies............ 4 2. Full Term Pregnancies........ 3 3. Premature.................... 0 4. Abortions - Induced.......... 0 5. Abortions - Spontaneous...... 0 6. Ectopics..................... 0 7. Multiple Births.............. 0 8. Living Children.............. 3 PAST #1: Date of :.................. 10/11/14 Gestation Weeks:................ 38 Length of labor(hours):......... 13 Sex:............................ F Weight-lbs:............... 7 Weight-oz:................ 7 Type of Delivery:............... Vag Type of Anesthesia:............. Epidural Place of Delivery:.............. [place] Treatment of Labor?:.... No Comment: CAN, NO PROBLEM. PAST #2: Date of :.................. 08/30/16 Gestation Weeks:................ 39 Length of labor(hours):......... 9 Sex:............................ F Weight-lbs:............... 8 Weight-oz:................ 8 Type of Delivery:............... Vag Type of Anesthesia:............. Epidural Place of Delivery:.............. [place] Treatment of Labor?:.... No Comment: NONE PAST #3: Date of :.................. 02/22/19 Gestation Weeks:................ 37 Length of labor(hours):......... 10 Sex:............................ F Weight-lbs:............... 7 Weight-oz:................ 2 Type of Delivery:............... Vag Type of Anesthesia:............. Epidural Place of Delivery:.............. [facility] Treatment of Labor?:.... No Comment: SROM, AUGMENTATION PHYSICAL EXAMINATION General Appearence: 30 yo female in no acute distress Vital Signs: AF, VSS Heart: RRR without rubs or gallops Lungs: CTA x 2 Breasts: deferred Abdomen: gravid Pelvis: Cervix: 6/90 ROM clear Presentation: cephalic Station: -2 Fetus: Size: AGA Movement: present Heart: present LAB TEST(S) ORDERED SINCE:01/12/20 03/07/2020 Other 03/06/2020 Initial OB Labs 03/06/2020 Drug Screen 02/27/2020 GC-Chlamydia 10/14/2020 TYPE AND SCREEN 10/13/2020 COVID 19 AG RAPID (RN COLLECT) 10/13/2020 CBC W/DIFF, AUTOMATED 09/15/2020 CULTURE, GROUP B STREPTOCOCCUS 07/11/2020 GLUCOSE CHALLENGE GEST 1H 50G 07/11/2020 CBC-COMPLETE BLOOD CNT NO DIFF == ==== Order Observation Description Value Ref_Range A* Site == ==== Labor [facility]~[address] [place], [address]~ TYPE AND SCRE AB SCREEN GEL NEGATIVE ML COVID 19 AG RAP NOTE NOV[facility] CBC W/DIFF, AUT NOTE NOV[facility] CBC W/DIFF, AUT WBC 7.9 K/mm3 4.4-11.0 ML CBC W/DIFF, AUT RBC 3.82 M/mm3 4.2-5.4 L ML CBC W/DIFF, AUT HGB 11.8 g/dL 12.0-15.0 L ML CBC W/DIFF, AUT HCT 36.0 37-47 L ML CBC W/DIFF, AUT MCV 94.2 fL 81-99 ML CBC W/DIFF, AUT MCH 30.9 pg 27.0-32.0 ML CBC W/DIFF, AUT MCHC 32.8 g/dL 32-36 ML CBC W/DIFF, AUT RDW CV 11.9 11.6-14.6 ML CBC W/DIFF, AUT RDW SD 41.4 fl 35.1-43.9 ML CBC W/DIFF, AUT PLT 125 K/mm3 150-450 L ML CBC W/DIFF, AUT MPV 12.5 fl 6.2-12.0 H ML CBC W/DIFF, AUT NEUT% 61.9 47-70 ML CBC W/DIFF, AUT LY% 25.9 19-41 ML CBC W/DIFF, AUT MONO% 10.9 0-10 H ML CBC W/DIFF, AUT EO% 0.6 0-5 ML CBC W/DIFF, AUT BASO% 0.1 0-1 ML CBC W/DIFF, AUT IG% 0.600 0.0-0.9 ML IG% - Immature Granulocytes (promyelocytes, myelocytes and metamyelocytes) > 1% indicates that a LEFT SHIFT is Present. CBC W/DIFF, AUT ABSOLUTE NEUT 4.9 X10 3/uL 2.0-7.7 ML CBC W/DIFF, AUT ABSOLUTE LYMPH 2.04 X10 3/uL 0.83-4.51 ML CBC W/DIFF, AUT NUCLEATED RBC 0 0-5 ML CULTURE, GROUP NOTE NOVOA CBC-COMPLETE BL NOTE NOVOA CBC-COMPLETE BL WBC 8.1 K/mm3 4.4-11.0 ML CBC-COMPLETE BL RBC 3.63 M/mm3 4.2-5.4 L ML CBC-COMPLETE BL HGB 11.2 g/dL 12.0-15.0 L ML CBC-COMPLETE BL HCT 35.2 % 37-47 L ML CBC-COMPLETE BL MCV 97.0 fL 81-99 ML CBC-COMPLETE BL MCH 30.9 pg 27.0-32.0 ML CBC-COMPLETE BL MCHC 31.8 g/dL 32-36 L ML CBC-COMPLETE BL RDW CV 12.1 % 11.6-14.6 ML CBC-COMPLETE BL RDW SD 42.8 fl 35.1-43.9 ML CBC-COMPLETE BL PLT 210 K/mm3 150-450 ML CBC-COMPLETE BL MPV 11.6 fl 6.2-12.0 ML GLUCOSE CHALLEN NOTE NOVOA GLUCOSE CHALLEN GLU GEST 50G 1H 63 mg/dL 70-140 L ML Initial OB Labs Blood Type O Initial OB Labs Rh Type POSITIVE Initial OB Labs Antibody Screen NEGATIVE Negative Initial OB Labs Hemoglobin Initial OB 12.0 Initial OB Labs Hematocrit Initial OB 37.4 Initial OB Labs PLT 251 Initial OB Labs Rubella IMMUNE Immune Initial OB Labs VDRL NON-REACTIVE Non Reactive Initial OB Labs HBsAg NEG Negative HEP C AB - NEGATIVE Initial OB Labs HIV Test NEG Negative Initial OB Labs Urine Protein NEG Negative Initial OB Labs Urine Glucose NEG Negative Drug Screen Marijuana NEG Negative Drug Screen Cocaine NEG Negative Drug Screen Amphetamines NEG Negative Drug Screen Barbituates NEG Negative Other Unusual lab RPR - nonreactive (Sc NOVOA GC-Chlamydia Chlamydia negative - scanned Negative NOVOA GC-Chlamydia GC negataive - scanned No Growth NOVOA O POSITIVE COVID AG -RAPID *Negative results from patients with symptom onset beyond five days should be treated as presumptive and confirmed by a molecular assay if clinically necessary. Negative results should not be used as the sole basis for treatment or for patient management. *Positive results do not differentiate between SARS-CoV and SARS-CoV-2. If differentation of the specific SARS virus is desired an additional sample and an additional order is required. * This test has not been FDA cleared or approved; the test has been authorized by FDA under an Emergency Use Authorization (EAU) for use by laboratories certified under CLIA that meet the requirements to perform moderate, high, or waived complexity tests. Normal Reference Range: Negative Testing performed on [employer] analyzer KIM (lateral flow immunofluorescent assay) SARS-CoV-2 (COVID 19) Negative LINDSAY Culture Group B Beta Streptococcus is not isolated. == ==== Impression /Plan: 40 wks + 6 days intrauterine in labor. Preparations in progress for delivery.
--- NOTE | 2020-10-14 05:30 | OP.PCM_ITS ---
Vaginal Delivery Maternal Presentation: Active Labor, Spontaneous Rupture of Membranes Amniotic Membrane Rupture Type: Spontaneous at home Amniotic Fluid Description: Clear Final LISA: 10/08/20 Final LISA Source: US <20 weeks Gestational age: 40 Weeks and 6 Days Date of Procedure: 10/14/20 Surgery/ Procedure Performed: Spontaneous Vaginal Delivery Type of Anesthesia: Epidural Description of Procedure: Spontaneous vaginal delivery of a viable female with Apgars of 8/9 from an occiput anterior presentation with clear amniotic fluid and normal three- vessel placenta. No episiotomy. Second-degree midline laceration repaired with 3-0 Rapide suture under epidural. Cord around legs x2. Sponges okay. Delivery physician: José Mariee MD. Presentation: Vertex Placental Delivery Description: Spontaneous Cord Vessel Description: 3 Vessels Cord Entanglement: - - around legs x 2 Estimated Blood Loss: 250 cc Infant A gender: Female (1 minute): 8 (5 minute): 9 Episiotomy Description: None Laceration: Midline, 2nd degree Medications given after delivery: IV Pitocin Complications: None
--- NOTE | 2020-10-14 05:33 | DCINST_ITS ---
<José Mariee - Last Filed: 10/14/20 05:33> Discharge Diet: No Restrictions Discharge Activity: May Shower, May Not Shower May resume sexual activity in: 4-6 weeks Additional Activity Instructions:: Nothing in the vagina for 4-6 weeks. You may return to work/school in 6 weeks. Call your doctor if you observe: Inability to urinate, Inability to have a bowel movement, Using more than one pad per hour Additional Instructions: If you experience any of the following, contact your healthcare provider. * Bleeding that soaks a pad every hour for 2 hours * Fever 100.4 or higher * Unrelieved incision or abdominal pain * Swelling, redness, discharge or bleeding from your incision or episiotomy site * Your incision begins to separate * Problems urinating (including inability to urinate or burning while urinating). * Visual changes * Severe headache * Flu-like symptoms * Pain or redness in one of both of your breasts * Pain, warmth, tenderness or swelling in your legs, especially the calf area * Frequent nausea and vomiting * Symptoms of depression or anxiety If you experience any of the following, call 911 or go to the nearest Emergency Room. * Chest pain * Problems breathing * Seizure activity * Partial or complete paralysis of a body part, slurred speech, weakness or drooping of the face, or a sudden inability to walk or hold your balance Allergies/Adverse Reactions: Allergies No Known Allergies Allergy (Verified 10/14/20 01:10) Medications to take at Discharge Vits [Prenatabs FA ] 1 tablet PO DAILY 10/11/14 Please Follow Up With: Debbi Gupta, - [phone] When: Call to make an appointment with your doctor in 6 weeks. Primary Care Physician: Phong Webb MD [Primary Care Provider] - Test Results: Test results from this visit will be discussed in further detail at your follow- up appointment, if applicable. <Debbi Gupta - Last Filed: 10/15/20 08:18> Additional Instructions: If you experience any of the following, contact your healthcare provider. * Bleeding that soaks a pad every hour for 2 hours * Fever 100.4 or higher * Unrelieved incision or abdominal pain * Swelling, redness, discharge or bleeding from your incision or episiotomy site * Your incision begins to separate * Problems urinating (including inability to urinate or burning while urinating). * Visual changes * Severe headache * Flu-like symptoms * Pain or redness in one of both of your breasts * Pain, warmth, tenderness or swelling in your legs, especially the calf area * Frequent nausea and vomiting * Symptoms of depression or anxiety If you experience any of the following, call 911 or go to the nearest Emergency Room. * Chest pain * Problems breathing * Seizure activity * Partial or complete paralysis of a body part, slurred speech, weakness or drooping of the face, or a sudden inability to walk or hold your balance When: 3 week Telehealth visit. Test Results: Test results from this visit will be discussed in further detail at your follow- up appointment, if applicable.
--- NOTE | 2020-10-14 05:33 | PCM.DCVAG ---
<KodiJosé - Last Filed: 10/14/20 05:33> Discharge Diet: No Restrictions Discharge Activity: May Shower, May Not Shower May resume sexual activity in: 4-6 weeks Additional Activity Instructions:: Nothing in the vagina for 4-6 weeks. You may return to work/school in 6 weeks. Call your doctor if you observe: Inability to urinate, Inability to have a bowel movement, Using more than one pad per hour Additional Instructions: If you experience any of the following, contact your healthcare provider. Bleeding that soaks a pad every hour for 2 hours Fever 100.4 or higher Unrelieved incision or abdominal pain Swelling, redness, discharge or bleeding from your incision or episiotomy site Your incision begins to separate Problems urinating (including inability to urinate or burning while urinating). Visual changes Severe headache Flu-like symptoms Pain or redness in one of both of your breasts Pain, warmth, tenderness or swelling in your legs, especially the calf area Frequent nausea and vomiting Symptoms of depression or anxiety If you experience any of the following, call 911 or go to the nearest Emergency Room. Chest pain Problems breathing Seizure activity Partial or complete paralysis of a body part, slurred speech, weakness or drooping of the face, or a sudden inability to walk or hold your balance Allergies/Adverse Reactions: Allergies No Known Allergies Allergy (Verified 10/14/20 01:10) Medications to take at Discharge Vits [Prenatabs FA ] 1 tablet PO DAILY 10/11/14 Please Follow Up With: Debbi Gupta, - [phone] When: Call to make an appointment with your doctor in 6 weeks. Primary Care Physician: Phong Webb MD [Primary Care Provider] - Test Results: Test results from this visit will be discussed in further detail at your follow-up appointment, if applicable. <Debbi Gupta - Last Filed: 10/15/20 08:18> Additional Instructions: If you experience any of the following, contact your healthcare provider. Bleeding that soaks a pad every hour for 2 hours Fever 100.4 or higher Unrelieved incision or abdominal pain Swelling, redness, discharge or bleeding from your incision or episiotomy site Your incision begins to separate Problems urinating (including inability to urinate or burning while urinating). Visual changes Severe headache Flu-like symptoms Pain or redness in one of both of your breasts Pain, warmth, tenderness or swelling in your legs, especially the calf area Frequent nausea and vomiting Symptoms of depression or anxiety If you experience any of the following, call 911 or go to the nearest Emergency Room. Chest pain Problems breathing Seizure activity Partial or complete paralysis of a body part, slurred speech, weakness or drooping of the face, or a sudden inability to walk or hold your balance When: 3 week Telehealth visit. Test Results: Test results from this visit will be discussed in further detail at your follow-up appointment, if applicable.
[2020-10-14] MEDS: Ibuprofen 600 MG Tablet PO ×2 (07:34→17:11)
[2020-10-14] MEDS: 0.9% Saline Lock 10 ML Syringe IV (07:35)
[2020-10-14] MEDS: Acetaminophen 500 MG Tablet 1000 MG PO ×2 (11:03→20:41)
[2020-10-14] MEDS: Senna/Docusate Sodium 1 Tablet PO (17:39)
[2020-10-15] MEDS: Ibuprofen 600 MG Tablet PO ×3 (00:02→21:02)
[2020-10-15 03:53] VITALS: BP 124/56; PULSE 57; RESP 16; TEMP 36.1
[2020-10-15] MEDS: Acetaminophen 500 MG Tablet 1000 MG PO (07:18)
[2020-10-15 08:08] VITALS: BP 113/61; PULSE 47; RESP 16; TEMP 36.1
--- NOTE | 2020-10-15 08:16 | PCM.PN.OB ---
Subjective: PPD#1 Feels well aside from postural headache. Okay lying down, but occurs with sitting or standing. Pain is fairly severe. - Physical Exam Vitals/I&O's: Vital Signs Temp Pulse Resp BP Pulse Ox 97 F L 47 L 16 113/61 96 10/15/20 08:08 10/15/20 08:08 10/15/20 08:08 10/15/20 08:08 10/14/20 05:31 Oxygen Delivery Method Room Air Weight: 81.647 kg Body Mass Index (BMI) 29.9 Intake and Output for Last 24 Hours 10/13/20 10/14/20 10/15/20 23:59 23:59 23:59 Intake Total 2186.17 / 2186.17 Output Total 1750 / 1750 Balance 436.17 / 436.17 General: Alert, Oriented x3, No apparent distress HEENT: Atraumatic, Normocephalic Neck: Supple Lungs: Normal air movement Cardiovascular: Regular rate Abdomen: Soft - uterus 2 cm below umbilicus Extremities: No edema Neurological: Cranial nerves II-XII grossly intact Psych/Mental Status: Normal Affect, Appropriate Microbiology Past 72 Hours 10/14/20 01:20 Mucosa - Nose SARS-CoV-2 Antigen (Rapid) - Final Current Medications Acetaminophen (Acetaminophen 500 Mg Tablet) 1,000 mg PO Q8H PRN PRN PRN Reason: Pain Score 1-3 Last Admin: 10/15/20 07:18 Dose: 1,000 mg Documented by: Acetaminophen/Butalbital/Caffeine (Acetaminophen/Butalbital/Caffe 1 Tablet) 1 tablet PO Q4H PRN PRN PRN Reason: HEADACHE Bisacodyl (Bisacodyl 10 Mg Suppository) 10 mg RC UD PRN PRN Reason: If no BM Dibucaine (Dibucaine 30 Gm Tube) 1 applic TOPICAL TID PRN PRN; Protocol PRN Reason: Discomfort Hydrocortisone (Hydrocortisone 2.5% Crm) 1 applic TOPICAL TID PRN PRN; Protocol PRN Reason: Discomfort Ibuprofen (Ibuprofen 600 Mg Tablet) 600 mg PO Q6H PRN PRN PRN Reason: Pain Score 1-3 Last Admin: 10/15/20 07:18 Dose: 600 mg Documented by: Methylergonovine Maleate (Methylergonovine 0.2 Mg/Ml Ampul) 0.2 mg IM X1 PRN PRN Reason: Excess bleeding/uterine atony Ondansetron HCl (Ondansetron 4 Mg/2 Ml Vial) 4 mg IV Q4H PRN PRN PRN Reason: Nausea Oxycodone HCl (Oxycodone 5 Mg Tablet) 5 - 10 mg PO Q4H PRN PRN PRN Reason: Pain Score 4-10 Senna/Docusate Sodium (Senna/Docusate Sodium 1 Tablet) 1 - 2 tablet PO DAILY PRN PRN PRN Reason: Constipation Last Admin: 10/14/20 17:39 Dose: 1 tablet Documented by: Simethicone (Simethicone 80 Mg Tablet) 80 mg PO PCHS PRN PRN Reason: Indigestion/Stomach pain Sodium Chloride (0.9% Saline Lock 10 Ml Syringe) 5 - 15 ml IV UD PRN PRN Reason: SALINE FLUSH Last Admin: 10/14/20 07:35 Dose: 10 ml Documented by: Zolpidem Tartrate (Zolpidem Tartrate 5 Mg Tablet) 5 mg PO QHS PRN PRN PRN Reason: Insomnia Medical Necessity - Tobacco Use Smoking Status: Never smoker Assessment/Plan PPD#1 s/p . Likely dural puncture with headache. Add fioricet, increase fluid intake. Anesthesia to see. . Consider home today, will monitor throughout the day.
--- NOTE | 2020-10-15 08:54 | NURSING ---
Dr Mariee was in room from anesthesia t evaluate and speak with patient. Discussed meds, hydration, caffeine vs blood patch. Parents educated and will call RN with decision.
[2020-10-15] MEDS: Acetaminophen/Butalbital/Caffe 1 Tablet PO ×2 (08:59→14:01)
--- NOTE | 2020-10-15 08:59 | NURSING ---
pt has decided to stay the night, treat with meds/hydration/caffeine and try blood patch tomorrow if needed. This RN updated Dr Mariee
[2020-10-15 13:58] VITALS: BP 118/59; PULSE 61; RESP 16; TEMP 36.3
[2020-10-15 20:40] VITALS: BP 132/68; PULSE 47; RESP 18
[2020-10-16] VITALS (7 sets, daily range): BP systolic 112–143; BP diastolic 52–76; PULSE 47–88; RESP 16; TEMP 36.5–36.6; O2SAT 96
[2020-10-16] MEDS: Acetaminophen/Butalbital/Caffe 1 Tablet PO ×2 (02:36→07:39)
[2020-10-16] MEDS: Ibuprofen 600 MG Tablet PO (06:57)
--- NOTE | 2020-10-16 08:53 | PCM.PN.OB ---
Subjective: Patient without complaints except for spinal headache. Minimal bleeding noted and pain well controlled. Wants to go home later today if headache can be managed. - Physical Exam Vitals/I&O's: Vital Signs Temp Pulse Resp BP Pulse Ox 97.3 F L 61 16 141/66 H 96 10/15/20 13:58 10/16/20 02:34 10/16/20 02:34 10/16/20 02:34 10/14/20 05:31 Oxygen Delivery Method Room Air Weight: 180 lb Body Mass Index (BMI) 29.9 Intake and Output for Last 24 Hours 10/14/20 10/15/20 10/16/20 23:59 23:59 23:59 Intake Total 2186.17 / 2186.17 Output Total 1750 / 1750 Balance 436.17 / 436.17 Microbiology Past 72 Hours 10/14/20 01:20 Mucosa - Nose SARS-CoV-2 Antigen (Rapid) - Final Current Medications Acetaminophen (Acetaminophen 500 Mg Tablet) 1,000 mg PO Q8H PRN PRN PRN Reason: Pain Score 1-3 Last Admin: 10/15/20 07:18 Dose: 1,000 mg Documented by: Acetaminophen/Butalbital/Caffeine (Acetaminophen/Butalbital/Caffe 1 Tablet) 1 tablet PO Q4H PRN PRN PRN Reason: HEADACHE Last Admin: 10/16/20 07:39 Dose: 1 tablet Documented by: Bisacodyl (Bisacodyl 10 Mg Suppository) 10 mg RC UD PRN PRN Reason: If no BM Dibucaine (Dibucaine 30 Gm Tube) 1 applic TOPICAL TID PRN PRN; Protocol PRN Reason: Discomfort Hydrocortisone (Hydrocortisone 2.5% Crm) 1 applic TOPICAL TID PRN PRN; Protocol PRN Reason: Discomfort Ibuprofen (Ibuprofen 600 Mg Tablet) 600 mg PO Q6H PRN PRN PRN Reason: Pain Score 1-3 Last Admin: 10/16/20 06:57 Dose: 600 mg Documented by: Methylergonovine Maleate (Methylergonovine 0.2 Mg/Ml Ampul) 0.2 mg IM X1 PRN PRN Reason: Excess bleeding/uterine atony Ondansetron HCl (Ondansetron 4 Mg/2 Ml Vial) 4 mg IV Q4H PRN PRN PRN Reason: Nausea Oxycodone HCl (Oxycodone 5 Mg Tablet) 5 - 10 mg PO Q4H PRN PRN PRN Reason: Pain Score 4-10 Senna/Docusate Sodium (Senna/Docusate Sodium 1 Tablet) 1 - 2 tablet PO DAILY PRN PRN PRN Reason: Constipation Last Admin: 10/14/20 17:39 Dose: 1 tablet Documented by: Simethicone (Simethicone 80 Mg Tablet) 80 mg PO PCHS PRN PRN Reason: Indigestion/Stomach pain Sodium Chloride (0.9% Saline Lock 10 Ml Syringe) 5 - 15 ml IV UD PRN PRN Reason: SALINE FLUSH Last Admin: 10/14/20 07:35 Dose: 10 ml Documented by: Zolpidem Tartrate (Zolpidem Tartrate 5 Mg Tablet) 5 mg PO QHS PRN PRN PRN Reason: Insomnia Medical Necessity - Tobacco Use Smoking Status: Never smoker Assessment/Plan Doing well day #2 status post routine spontaneous vaginal delivery. Likely spinal headache. Anesthesia to evaluate later today and if appropriate patient will be okay to be discharged home with routine instructions.
[2020-10-16] MEDS: 0.9% Saline Lock 10 ML Syringe IV (10:12)
--- NOTE | 2020-10-16 10:55 | NURSING ---
Epidural blood patch discussed with pt per Dr. Ramirez and questions answered. Pt positioned sitting upright on side of bed and consent signed. Time out performed before procedure. Geetha. procedure without complaint and repositioned to lay flat in bed per Dr. Mariee request.
== END 2020-10-16 12:35 | disposition home or self-care (01) | DRG 807 ==
LOC: WPOUT 01:10 → WP 01:10
PROVIDERS: Admitting Provider Obstetrics & Gynecology; PCP Family Medicine; Referring Provider Obstetrics & Gynecology; Visit Provider Obstetrics & Gynecology
DX: O42.92 Full-term premature rupture of membranes, unspecified as to length of time between rupture and onset of labor (principal); Z37.0 Single live birth; O69.2XX0 Labor and delivery complicated by other cord entanglement, with compression, not applicable or unspecified; O70.1 Second degree perineal laceration during delivery; O89.4 Spinal and epidural anesthesia-induced headache during the puerperium; Z3A.40 40 weeks gestation of pregnancy
CPT/HCPCS: 59025; 59050; 85025; 86850; 86900; 86901; 87426; 99218; J7120; A4216; G0378

== ENCOUNTER 2021-08-11 15:31 | Outpatient (CLI) | payer BC, SELFPAY ==
[2021-08-15 14:14] LABS: HPV APTIMA, High Risk Negative (Negative)
== END 2021-08-11 23:59 | disposition home or self-care (01) ==
PROVIDERS: PCP Family Medicine; Visit Provider Student in an Organized Health Care Education/Training Program
DX: Z12.4 Encounter for screening for malignant neoplasm of cervix (principal)
CPT/HCPCS: 87624; 88175; G0145

== ENCOUNTER → 2022-10-30 | Outpatient (CLI) | payer BC, SELFPAY ==
[2022-10-30 12:19] LABS: Absolute Lymphocyte Count 1.65 X10^3/uL (0.83-4.51); Absolute Neutrophil Count 3.8 X10^3/uL (2.0-7.7); Basophil# 0.01 X10^3/uL; Basophil% 0.2 % (0-1); Eosinophil# 0.04 X10^3/uL; Eosinophils% 0.7 % (0-5); Hematocrit 39.4 % (37-47); Hemoglobin 12.7 g/dL (12.0-15.0); Lymphocyte # 1.65 X10^3/ul (0.83-4.51); Lymphocyte % 28.4 % (19-41); Mean Corp Hgb Conc 32.2 g/dL (32-36); Mean Corpuscular Hgb 30.5 pg (27.0-32.0); Mean Corpuscular Volume 94.5 fL (81-99); Mean Platelet Vol. 10.7 fl (6.2-12.0); Monocyte# 0.33 X10^3/uL; Monocyte% 5.7 % (0-10); NRBC Flagged by Analyzer 0 % (0-5); Neutrophil # 3.77 X10^3/uL (2.7-7.7); Neutrophil % 64.8 % (47-70); Platelet Count 262 K/mm3 (150-450); RBC Distribution Width CV 11.9 % (11.6-14.6); RBC Distribution Width SD 41.6 fl (35.1-43.9); Red Blood Count 4.17 M/mm3 (4.2-5.4); White Blood Count 5.8 K/mm3 (4.4-11.0)
[2022-10-30 12:38] LABS: Vitamin B12 266 pg/mL (211-911); Vitamin D,25 Hydroxy 33.8 ng/mL
[2022-10-30 12:42] LABS: ALB/GLOB Ratio 0.8 RATIO (0.9-2.4); AST(SGOT) 17 U/L (15-37); Alanine Aminotransfer ALT/SGPT 20 U/L (13-56); Albumin, Serum 3.4 g/dL (3.2-5.0); Alkaline Phosphatase 45 U/L (45-117); Anion Gap 3 (5-15); BUN 16 mg/dL (7-18); BUN/Creat Ratio 21.9 RATIO (10-20); CRP 3.16 mg/L (0.0-3.0); Calcium,Total 8.8 mg/dL (8.5-10.1); Chloride 104 mmol/L (98-107); Creatinine, Serum 0.73 mg/dL (0.55-1.02); EST Glomerular Filtration Rate 97 mL/min (>60); Est Glom Filt Rate - Afr Amer 117 mL/min (>60); Ferritin 12 ng/mL (8-252); Glucose 96 mg/dL (74-106); Iron 166 ug/dL (50-170); Magnesium 2.3 mg/dL (1.6-2.6); Protein, Total 7.4 g/dL (6.4-8.2); Sodium Level 136 mmol/L (136-145); Thyroid Stim Hormone (TSH) 1.08 uIU/mL (0.358-3.74)
[2022-10-30 14:01] LABS: Erythrocyte Sedimentation Rate 12 mm/hr (0-30)
[2022-11-02 17:07] LABS: ANTINUCLEAR ANTIBODIES DIRECT Negative (Negative)
== END | disposition home or self-care (01) ==
LOC: MFPLAB 10:00
PROVIDERS: PCP Family Medicine; Visit Provider Family Medicine
DX: R20.0 Anesthesia of skin (principal)
CPT/HCPCS: 36415; 80053; 82306; 82607; 82728; 83540; 83735; 84443; 85025; 85652; 86038; 86140

== ENCOUNTER → 2022-12-15 | Outpatient (CLI) | payer BC, SELFPAY ==
--- NOTE | 2022-12-15 08:44 | MRI_ITS ---
INDICATION: numbness and tingling IN HANDS, ARMS AND LEGS, H/O MOTHER WITH MS EXAMINATION: MRI - MR Brain W/O Contrast TECHNIQUE: MRI examination of brain obtained with standard protocol including multiplanar multiecho imaging. Noncontrast imaging obtained. IV Contrast Dosage and Agent: None. COMPARISON: None. FINDINGS: HEMISPHERES, CEREBELLUM AND BRAINSTEM: 1. The cerebral parenchyma, ventricular system, subarachnoid spaces have normal configuration and density. There is a normal gyral pattern. There is normal mojica/white differentiation. No midline shift.. 2. There are multiple focal areas of signal hyperintensity and T2 and FLAIR imaging in the hemispheric white matter including subcortical, and periventricular lesions. Early callosal lesions are present in the region of the splenium. There is mildly prominent white matter lesion in the RIGHT frontal cortex measuring approximately 10 x 8 mm, however no evidence of fluid restriction, acute ischemia, or hemorrhage. 3. No areas of fluid restriction. No hemosiderin deposition noted. 4. No intraparenchymal mass, hemorrhage, or acute territorial infarct. 5. The cerebellum, brainstem, basilar and suprasellar cisterns have normal appearance. No Chiari malformation. PITUITARY: Infundibulum and pituitary have normal configuration. Midline structures appear normal. CSF SPACES: Appropriate for age. No hydrocephalus. Basal cisterns are patent. VESSELS: 1. There are normal flow voids noted in the great vessels at the skull base ORBITS AND PARANASAL SINUSES: 1. Both globes, extraocular muscles, optic nerves and retrobulbar fat appear unremarkable. 2. There is incomplete opacification RIGHT maxillary antrum. Remaining paranasal sinuses are clear. BONY ELEMENTS: Bony elements of the cranial vault, facial skeleton and skull base have normal appearance. SCALP AND SOFT TISSUES: Normal appearance of the soft tissues of the scalp and the visualized face OTHER: None MRI/Brain without Contrast IMPRESSION: 1. Multiple white matter lesions present bilaterally including juxtacortical, periventricular, and early callosal lesions. Pattern is suspicious of demyelinating processes with potential of MS. 2. No evidence flory fluid restriction or acute demyelination. 3. No mass, hemorrhage, or acute territorial infarct. 4. Chronic RIGHT maxillary sinus disease. Electronically Signed: Cristian De La Cruz MD at 21:48 EDT ,
== END | disposition home or self-care (01) ==
PROVIDERS: PCP Family Medicine; Referring Provider Family Medicine; Visit Provider Family Medicine
DX: R20.0 Anesthesia of skin (principal)
CPT/HCPCS: 70551